=== PATIENT | male | born 1965 | race Caucasian/White ===

== ENCOUNTER 2017-02-23 10:47 | Emergency (ER) | payer OTHER ==
[~2017-02-23] VITALS: Ht 170.2 cm; Wt 104.3 kg
[2017-02-23 11:03] VITALS: BP 161/98
== END 2017-02-23 12:21 | disposition home or self-care (01) ==
LOC: ED 10:47
DX: G51.0 Bell's palsy (principal); I10 Essential (primary) hypertension; E78.00 Pure hypercholesterolemia, unspecified
CPT/HCPCS: 82962

== ENCOUNTER 2019-02-08 23:45 | Emergency (ER) | payer OTHER ==
[~2019-02-08] VITALS: Ht 170.2 cm; Wt 103.0 kg
[2019-02-09 00:03] VITALS: Ht 170.2 cm; Wt 103.0 kg
[2019-02-09 02:16] VITALS: BP 132/69
== END 2019-02-09 02:16 | disposition home or self-care (01) ==
LOC: ED 23:45
DX: R05 Cough (principal); J98.01 Acute bronchospasm; E78.00 Pure hypercholesterolemia, unspecified; I10 Essential (primary) hypertension; M51.37 Other intervertebral disc degeneration, lumbosacral region
CPT/HCPCS: J7512; J7613

== ENCOUNTER 2019-02-10 12:24 | Emergency (ER) | payer OTHER ==
[~2019-02-10] VITALS: Ht 170.2 cm; Wt 104.8 kg
[2019-02-10 12:29] VITALS: BP 136/85; Ht 170.2 cm; Wt 104.8 kg
== END 2019-02-10 15:00 | disposition home or self-care (01) ==
LOC: ED 12:24
DX: J20.9 Acute bronchitis, unspecified (principal); I10 Essential (primary) hypertension; E78.00 Pure hypercholesterolemia, unspecified
CPT/HCPCS: J7613; J7644

== ENCOUNTER 2019-05-11 21:10 | Emergency (ER) | payer OTHER ==
[~2019-05-11] VITALS: Ht 170.2 cm; Wt 102.1 kg
[2019-05-11 21:32] VITALS: Ht 170.2 cm; Wt 102.1 kg
[2019-05-11 22:55] VITALS: BP 113/85
== END 2019-05-11 22:55 | disposition home or self-care (01) ==
LOC: ED 21:10
DX: S43.102A Unspecified dislocation of left acromioclavicular joint, initial encounter (principal); X58.XXXA Exposure to other specified factors, initial encounter; Y93.89 Activity, other specified; Y92.89 Other specified places as the place of occurrence of the external cause; Y99.8 Other external cause status

== ENCOUNTER 2019-11-03 12:49 | Emergency (ER) | payer OTHER ==
[~2019-11-03] VITALS: Ht 170.2 cm; Wt 103.0 kg
[2019-11-03 13:01] VITALS: Ht 170.2 cm; Wt 103.0 kg
[2019-11-03 15:09] VITALS: BP 125/79
== END 2019-11-03 15:09 | disposition home or self-care (01) ==
LOC: ED 12:49
DX: S99.922A Unspecified injury of left foot, initial encounter (principal); I10 Essential (primary) hypertension; E78.00 Pure hypercholesterolemia, unspecified; W22.8XXA Striking against or struck by other objects, initial encounter; Y93.89 Activity, other specified; Y92.89 Other specified places as the place of occurrence of the external cause; Y99.8 Other external cause status